=== PATIENT | male | born 1980 | race Caucasian/White ===

== ENCOUNTER 2018-11-07 12:28 | Emergency (ER) | payer SELFPAY ==
[2018-11-07 13:24] LABS: Absolute Lymphocytes (CBC) 1.7 K/uL (0.7-4.9); Absolute Monocytes 0.7 K/uL (0.1-1.3); Absolute Neutrophil 5.5 K/uL (1.8-8.0); Basophils % 0.5 % (0-1.3); Eosinophils % 0.7 % (0-4.4); Hematocrit 50.4 % (39.6-49.0); Lymphocytes % 21.1 % (15.3-44.8); MPV 7.4 fL (7.6-11.3); Monocytes % 8.7 % (3.3-12.3); RBC Red Blood Cell Count 5.49 M/uL (4.33-5.43)
[2018-11-07] MEDS ORDERED: NA CHLORIDE 0.9% 1,000 ML ONE (13:26)
[2018-11-07 13:48] LABS: BUN Blood Urea Nitrogen 6 mg/dL (7-18); Bicarbonate 28 mmol/L (21-32); Glucose Level 101 mg/dL (74-106); Potassium 4.5 mmol/L (3.5-5.1); Sodium Level 139 mmol/L (136-145)
--- NOTE | 2018-11-07 13:48 | RAD REPORT ---
EXAM DESCRIPTION: CT - Head Brain Wo Cont - 11/07/2018 1:42 pm CLINICAL HISTORY: HEADACHE Drowsiness COMPARISON: No comparisons TECHNIQUE: All CT scans are performed using dose optimization technique as appropriate and may inclu de automated exposure control or mA/KV adjustment according to patient size. FINDINGS: No intracranial hemorrhage, hydrocephalus or extra-axial fluid collection.No areas of brai n edema or evidence of midline shift. The paranasal sinuses and mastoids are clear. The calvarium is intact. IMPRESSION: No acute intracranial abnormality.
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
[2018-11-07] MEDS ORDERED: KETOROLAC 30 MG/ML INJ ONE (14:32)
== END 2018-11-07 14:50 | disposition home or self-care (01) ==
LOC: ER 12:28
DX: S32.018A Other fracture of first lumbar vertebra, initial encounter for closed fracture (principal); S32.028A Other fracture of second lumbar vertebra, initial encounter for closed fracture; V59.9XXA Occupant (driver) (passenger) of pick-up truck or van injured in unspecified traffic accident, initial encounter; F17.210 Nicotine dependence, cigarettes, uncomplicated
CPT/HCPCS: 36415; 70450; 71046; 74177; 80048; 85025; 96361; 96374; 99285; J7030; Q9967

== ENCOUNTER 2019-01-05 09:37 | Emergency (ER) | payer SELFPAY ==
[2019-01-05] MEDS ORDERED: FLUORESCEIN SODIUM 1 MG/WRAP ONE (10:25)
[2019-01-05] MEDS ORDERED: TETRACAINE HCL 0.5% 2ML OPTH ONE (10:25)
--- NOTE | 2019-01-05 10:50 | ER ---
Nurse's Notes [facility] Name: Henrik Clemons Age: 38 yrs Sex: Male : 1980 Arrival Date: 01/05/2019 Time: 09:39 Bed 10 Private MD: Diagnosis: Foreign body right upper eyelid;Abrasion of conjunctiva, right eye Presentation: 01/05 09:52 Presenting complaint: Patient states: "I got a piece of aluminum in my right eye aa5 yesterday working". Transition of care: patient was not received from another setting of care. Onset of symptoms was December 2018. Risk Assessment: Do you want to hurt yourself or someone else? Patient reports no desire to harm self or others. Initial Sepsis Screen: Does the patient meet any 2 criteria? No. Patient's initial sepsis screen is negative. Does the patient have a suspected source of infection? No. Patient's initial sepsis screen is negative. Care prior to arrival: None. 09:52 Method Of Arrival: Ambulatory aa5 09:52 Acuity: FILOMENA 4 aa5 Historical: - Allergies: 09:54 No Known Allergies; aa5 - PMHx: 09:54 None; aa5 - PSHx: 09:54 None; aa5 - Immunization history:: Last tetanus immunization: unknown. - Social history:: Smoking status: Patient uses tobacco products, smokes one pack cigarettes per day. - Ebola Screening: : No symptoms or risks identified at this time. Screenin:52 Abuse screen: Denies threats or abuse. Nutritional screening: No deficits noted. aa5 Tuberculosis screening: No symptoms or risk factors identified. Fall Risk None identified. Assessment: 09:52 General: Appears uncomfortable, Behavior is calm, cooperative. Pain: Complains of pain aa5 in right eye Quality of pain is described as irritation. Neuro: Level of Consciousness is awake, alert, obeys commands, Oriented to person, place, time, situation. Cardiovascular: No deficits noted. Respiratory: Airway is patent Respiratory effort is even, unlabored, Respiratory pattern is regular, symmetrical. GI: No signs and/or symptoms were reported involving the gastrointestinal system. : No signs and/or symptoms were reported regarding the genitourinary system. EENT: Eyes are tearing on right eye Sclera/Cornea are reddened in right eye. Derm: Skin is pink, warm \\T\\ dry. Musculoskeletal: Range of motion: intact in all extremities. 11:28 Reassessment: Patient is alert, oriented x 3, equal unlabored respirations, skin aa5 warm/dry/pink. Vital Signs: 09:54 BP 131 / 94; Pulse 75; Resp 16 S; Temp 98.3(TE); Pulse Ox 98% on R/A; Weight 72.57 kg aa5 (R); Height 5 ft. 9 in. (175.26 cm) (R); Pain 4/10; 09:54 Body Mass Index 23.63 (72.57 kg, 175.26 cm) aa5 Visual Acuity: 11:19 Left Eye Visual acuity 20/40, ; Right Eye Visual acuity 20/20, ; Both Eyes Visual hj acuity 20/20; Without Lenses; ED Course: 09:39 Patient arrived in ED. rg4 09:52 Arm band placed on. aa5 09:52 Patient has correct armband on for positive identification. Bed in low position. Call aa5 light in reach. Side rails up X 1. 09:53 Triage completed. aa5 09:55 Ivory Antonio, CARLINE is Primary Nurse. aa5 10:05 Arpan Brar NP is PHCP. pm1 10:05 Louis Elena MD is Attending Physician. pm1 10:41 Assist provider with eye exam of right eye. using fluorescein stain, Performed by aa5 Arpan Brar NP Patient tolerated Other small piece of aluminum removed by SUREKHA. 11:28 Patient did not have IV access during this emergency room visit. aa5 Administered Medications: 10:40 Drug: Tetracaine Drops 0.5 % 1 drops Route: Ophthalmic; Site: right eye; dm5 10:41 Drug: Fluorescein Strip 1 strip Route: Ophthalmic; Site: right eye; dm5 10:51 Drug: Tetanus-Diphtheria Toxoid Adult 0.5 ml {[employer]: [place]. Exp: dm5 07/11/2020. Lot #: [id number]. } Route: IM; Site: right deltoid; 11:20 Follow up: Response: No adverse reaction aa5 Outcome: 10:50 Discharge ordered by . pm1 11:28 Discharged to home ambulatory. aa5 11:28 Condition: good 11:28 Discharge instructions given to patient, Instructed on discharge instructions, follow up and referral plans. medication usage, Demonstrated understanding of instructions, follow-up care, medications, Prescriptions given X 1. 11:30 Patient left the ED. dm5 Signatures: Linda Keating RN RN dm5 Ivory Antonio RN RN aa5 Ilya Womack, RN RN Arpan Correa, FACSIMILE OPERATOR FACSIMILE OPERATOR pm1 Lissy Trevino rg4 Corrections: (The following items were deleted from the chart) 09:40 General: Appears uncomfortable, Behavior is calm, cooperative, aa5 aa5 09:40 Pain: Complains of pain in right eye Quality of pain is described as irritation aa5 aa5 09:40 Neuro: Level of Consciousness is awake, alert, obeys commands, Oriented to aa5 person, place, time, situation, aa5 09:40 Cardiovascular: No deficits noted. aa5 aa5 09:40 Respiratory: Airway is patent Respiratory effort is even, unlabored, Respiratory aa5 pattern is regular, symmetrical, aa5 09:40 GI: No signs and/or symptoms were reported involving the gastrointestinal system. aa5 aa5 09:40 : No signs and/or symptoms were reported regarding the genitourinary system. aa5aa5 09:40 EENT: Eyes are tearing on right eye Sclera/Cornea are reddened in right eye aa5 aa5 09:40 Derm: Skin is pink, warm \\T\\ dry. aa5 aa5 09:40 Musculoskeletal: Range of motion: intact in all extremities, aa5 aa5 10:47 10:47 No provider procedures requiring assistance completed. aa5 aa5
--- NOTE | 2019-01-05 10:50 | EDPHYS ---
Physician Documentation [facility] Name: Henrik Clemons Age: 38 yrs Sex: Male : 1980 Arrival Date: 01/05/2019 Time: 09:39 Bed 10 Private MD: ED Physician Louis Elena HPI: 01/05 10:20 This 38 yrs old Male presents to ER via Ambulatory with complaints of Foreign pm1 Body In Eye. 10:20 The patient is experiencing foreign body sensation, to the right eye, caused by metal pm1 fragment. Onset: The symptoms/episode began/occurred yesterday. Duration: the symptoms are continuous. Aggravated by nothing. Alleviated by nothing. Associated signs and symptoms: Pertinent positives: None. Pertinent negatives: vision changes. 10:20 Patient does not utilize any form of vision correction. Severity of symptoms: in the pm1 emergency department the symptoms are unchanged. The patient has not experienced similar symptoms in the past. The patient has not recently seen a physician. Patient was wearing eye dick but a piece of aluminum that he was cutting for the gutters got into his right eye. Historical: - Allergies: 09:54 No Known Allergies; aa5 - PMHx: 09:54 None; aa5 - PSHx: 09:54 None; aa5 - Immunization history:: Last tetanus immunization: unknown. - Social history:: Smoking status: Patient uses tobacco products, smokes one pack cigarettes per day. - Ebola Screening: : No symptoms or risks identified at this time. ROS: 10:20 Constitutional: Negative for fever, chills, and weight loss, ENT: Negative for injury, pm1 pain, and discharge. 10:20 Neck: Negative for injury, pain, and swelling, Cardiovascular: Negative for chest pain, palpitations, and edema, Respiratory: Negative for shortness of breath, cough, wheezing, and pleuritic chest pain, Abdomen/GI: Negative for abdominal pain, nausea, vomiting, diarrhea, and constipation, Back: Negative for injury and pain, : Negative for injury, bleeding, discharge, and swelling, MS/Extremity: Negative for injury and deformity, Skin: Negative for injury, rash, and discoloration, Neuro: Negative for headache, weakness, numbness, tingling, and seizure. 10:20 Eyes: Positive for foreign body sensation, pain, of the right eye. Exam: 10:42 Constitutional: This is a well developed, well nourished patient who is awake, alert, pm1 and in no acute distress. Head/Face: Normocephalic, atraumatic. 10:42 ENT: Nares patent. No nasal discharge, no septal abnormalities noted. Tympanic membranes are normal and external auditory canals are clear. Oropharynx with no redness, swelling, or masses, exudates, or evidence of obstruction, uvula midline. Mucous membranes moist. Neck: Trachea midline, no thyromegaly or masses palpated, and no cervical lymphadenopathy. Supple, full range of motion without nuchal rigidity, or vertebral point tenderness. No Meningismus. Chest/axilla: Normal chest wall appearance and motion. Nontender with no deformity. No lesions are appreciated. Cardiovascular: Regular rate and rhythm with a normal S1 and S2. No gallops, murmurs, or rubs. Normal PMI, no JVD. No pulse deficits. Respiratory: Lungs have equal breath sounds bilaterally, clear to auscultation and percussion. No rales, rhonchi or wheezes noted. No increased work of breathing, no retractions or nasal flaring. Abdomen/GI: Soft, non-tender, with normal bowel sounds. No distension or tympany. No guarding or rebound. No evidence of tenderness throughout. Back: No spinal tenderness. No costovertebral tenderness. Full range of motion. Skin: Warm, dry with normal turgor. Normal color with no rashes, no lesions, and no evidence of cellulitis. MS/ Extremity: Pulses equal, no cyanosis. Neurovascular intact. Full, normal range of motion. 10:42 Eyes: Periorbital structures: appear normal, Pupils: no acute changes, normal size, normal reaction to light, Extraocular movements: intact throughout, Conjunctiva: injected, in the right eye, Corneas: abrasion, is not appreciated, Sclera: abrasion, of the lateral aspect of conjunctiva of right eye Lids and lashes: small morelos color speck foreign body on inner right upper eye lid when eyelid flipped. 10:42 Neuro: Orientation: is normal, Motor: is normal, Sensation: is normal, no obvious gross deficits. Vital Signs: 09:54 BP 131 / 94; Pulse 75; Resp 16 S; Temp 98.3(TE); Pulse Ox 98% on R/A; Weight 72.57 kg aa5 (R); Height 5 ft. 9 in. (175.26 cm) (R); Pain 4/10; 09:54 Body Mass Index 23.63 (72.57 kg, 175.26 cm) aa5 Visual Acuity: 11:19 Left Eye Visual acuity 20/40, ; Right Eye Visual acuity 20/20, ; Both Eyes Visual hj acuity 20/20; Without Lenses; Procedures: 10:42 Foreign Body Removal: a piece of metal, speck, from the right inside of right upper pm1 eyelid, by using a cotton-tipped swab, The patient tolerated the removal well, tetracaine drop applied to right eye. MDM: 10:13 Patient medically screened. pm1 10:43 Data reviewed: vital signs. Data interpreted: Pulse oximetry: on room air is 98 %. pm1 Interpretation: normal. 10:43 Counseling: I had a detailed discussion with the patient and/or guardian regarding: the pm1 historical points, exam findings, and any diagnostic results supporting the discharge/admit diagnosis, the need for outpatient follow up, for definitive care, an opthalmologist, to return to the emergency department if symptoms worsen or persist or if there are any questions or concerns that arise at home. 01/05 10:13 Order name: Visual Acuity; Complete Time: 11:29 pm1 01/05 10:13 Order name: Eye Tray; Complete Time: 10:23 pm1 01/05 10:13 Order name: Fluoresene Opth strip; Complete Time: 10:18 pm1 Administered Medications: 10:40 Drug: Tetracaine Drops 0.5 % 1 drops Route: Ophthalmic; Site: right eye; dm5 10:41 Drug: Fluorescein Strip 1 strip Route: Ophthalmic; Site: right eye; dm5 10:51 Drug: Tetanus-Diphtheria Toxoid Adult 0.5 ml {Manager System: ReInnervate. Exp: dm5 07/11/2020. Lot #: [id number]. } Route: IM; Site: right deltoid; 11:20 Follow up: Response: No adverse reaction aa5 Disposition: 14:26 Co-signature as Attending Physician, Louis Elena MD. rn Disposition: 01/05/19 10:50 Discharged to Home. Impression: Foreign body right upper eyelid, Abrasion of conjunctiva, right eye. - Condition is Stable. - Discharge Instructions: Corneal Abrasion, Eye Foreign Body. - Prescriptions for Gentamicin 0.3 % Ophthalmic Drops - instill 1 drop by OPHTHALMIC route every 4 hours for 7 days; 1 bottle. - Medication Reconciliation Form, Thank You Letter, Antibiotic Education form. - Follow up: Emergency Department; When: As needed; Reason: Worsening of condition. Follow up: Private Physician; When: 2 - 3 days; Reason: Recheck today's complaints, Continuance of care, Re-evaluation by your physician. - Problem is new. - Symptoms have improved. Signatures: Linda Keating, RN RN dm5 Louis Elena MD MD rn Calderon, Ivory, RN RN aa5 Arpan Brar, RIVER EXPEDITION GUIDE RIVER EXPEDITION GUIDE pm1 Corrections: (The following items were deleted from the chart) 11:30 10:50 01/05/2019 10:50 Discharged to Home. Impression: Foreign body right upper eyelid; dm5 Abrasion of conjunctiva, right eye. Condition is Stable. Forms are Medication Reconciliation Form, Thank You Letter, Antibiotic Education, Prescription Opioid Use. Follow up: Emergency Department; When: As needed; Reason: Worsening of condition. Follow up: Private Physician; When: 2 - 3 days; Reason: Recheck today's complaints, Continuance of care, Re-evaluation by your physician. Problem is new. Symptoms have improved. pm1
[2019-01-05] MEDS ORDERED: TETANUS & DIPHTHERIA TOX,ADULT 0.5 ML VIAL ONE (10:55)
== END 2019-01-05 11:30 | disposition home or self-care (01) ==
LOC: ER 09:37
DX: T15.91XA Foreign body on external eye, part unspecified, right eye, initial encounter (principal); T15.11XA Foreign body in conjunctival sac, right eye, initial encounter; W45.8XXA Other foreign body or object entering through skin, initial encounter; Y93.89 Activity, other specified; F17.210 Nicotine dependence, cigarettes, uncomplicated
CPT/HCPCS: 90714; 99283

== ENCOUNTER 2021-09-02 16:42 | Observation (INO) | payer OTHER, SELFPAY ==
[2021-09-02] MEDS ORDERED: LIDOCAINE 1% MPF 30 ML VIAL ONE (17:31)
[2021-09-02] MEDS ORDERED: ACETAMINOPHEN 500 MG TAB ONE (17:31)
[2021-09-02] MEDS ORDERED: FENTANYL CITR 100 MCG/2 ML ONE ×2 (18:00→18:49)
[2021-09-02] MEDS ORDERED: NA CHLORIDE 0.9% 1,000 ML ONE ×2 (18:00→20:10)
[2021-09-02 18:45] LABS: Absolute Lymphocytes (CBC) 2.2 K/uL (0.7-4.9); Basophils % 0.8 % (0-1.3); Hematocrit 46.6 % (39.6-49.0); Lymphocytes % 24.7 % (15.3-44.8); MPV 6.9 fL (7.6-11.3); RBC Red Blood Cell Count 4.95 M/uL (4.33-5.43)
[2021-09-02] MEDS ORDERED: TETANUS & DIPHTHERIA TOX,ADULT 0.5 ML VIAL ONE (18:49)
[2021-09-02 18:50] LABS: Protime INR 0.91
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
[2021-09-02 18:58] LABS: BUN Blood Urea Nitrogen 7 mg/dL (7-18); Bicarbonate 24 mmol/L (21-32); Glucose Level 83 mg/dL (74-106); Potassium 3.9 mmol/L (3.5-5.1); Sodium Level 133 mmol/L (136-145)
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
[2021-09-02] MEDS ORDERED: MORPHINE 4 MG/ML SYR ONE ×2 (20:10→22:44)
[2021-09-02] MEDS ORDERED: ONDANSETRON 4 MG/2 ML VIAL IV PRN (20:41)
[2021-09-02] MEDS ORDERED: ACETAMINOPHEN 500 MG TAB PO PRN (20:41)
[2021-09-02 22:13] LABS: Hematocrit 46.1 % (39.6-49.0)
[2021-09-03 00:44] VITALS: BMI 22.8
[2021-09-03] MEDS ORDERED: D5 0.45 NS 1,000 ML IV ONE ×2 (01:22→05:28)
[2021-09-03] MEDS: D5 0.45 NS 1,000 ML IV SCH ×4 (01:32→20:24)
[2021-09-03 04:29] LABS: Absolute Lymphocytes (CBC) 1.6 K/uL (0.7-4.9); Basophils % 0.9 % (0-1.3); Hematocrit 46.3 % (39.6-49.0); Lymphocytes % 19.6 % (15.3-44.8); MPV 7.1 fL (7.6-11.3); RBC Red Blood Cell Count 4.86 M/uL (4.33-5.43)
[2021-09-03 04:55] LABS: ALT/SGPT 69 U/L (12-78); AST/SGOT 54 U/L (15-37); Albumin 3.2 g/dL (3.4-5.0); Alkaline Phosphatase 78 U/L (45-117); BUN Blood Urea Nitrogen 7 mg/dL (7-18); Bicarbonate 26 mmol/L (21-32); Bilirubin Direct 0.3 mg/dL (0-0.2); Bilirubin Total 1.3 mg/dL (0.2-1.0); Glucose Level 89 mg/dL (74-106); Lipase 71 U/L (73-393); Potassium 3.9 mmol/L (3.5-5.1); Sodium Level 140 mmol/L (136-145)
[2021-09-03] MEDS ORDERED: ONDANSETRON 4 MG/2 ML VIAL ONE (07:49)
[2021-09-03] MEDS ORDERED: MORPHINE 4 MG/ML SYR ONE ×2 (07:49→12:13)
[2021-09-03] MEDS: MORPHINE 4 MG/ML SYR IV PRN ×4 (07:58→20:16)
[2021-09-03] MEDS ORDERED: INFLUENZA VACCINE (for 6+ mo) 0.5 ML DOSE IMVAC ONE (08:00)
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
[2021-09-03 11:38] VITALS: O2SAT 93
[2021-09-03] MEDS ORDERED: TRIAMCINOLONE ACET 0.1% CREAM 80 GM TOP PRN (13:00)
[2021-09-03] MEDS ORDERED: TRIAMCINOLONE 0.1% TOP PRN (13:08)
[2021-09-03] MEDS ORDERED: DENTAL PASTE TOP PRN (13:08)
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
[2021-09-04] MEDS: MORPHINE 4 MG/ML SYR IV PRN ×3 (00:11→08:40)
[2021-09-04] MEDS: D5 0.45 NS 1,000 ML IV SCH (04:16)
--- NOTE | 2021-09-04 11:46 | P.DS ---
Admission Date: 09/02/21 Discharge Date: 09/04/21 Disposition: ROUTINE DISCHARGE Discharge Condition: GOOD - Problems (1) Abdominal wall hematoma Onset Date: ~09/02/21 Current Visit: Yes Status: Acute (2) Lip laceration Onset Date: ~09/02/21 Current Visit: Yes Status: Acute Vital Signs/Physical Exam: Temp Pulse Resp BP Pulse Ox 98.1 F 72 19 140/86 97 09/04/21 08:00 09/04/21 08:00 09/04/21 09:10 09/04/21 08:00 09/04/21 09:10 General: Alert, In no apparent distress, Oriented x3, Cooperative HEENT: PERRLA, EOMI Neck: Supple, Without JVD or thyroid abnormality Respiratory: Clear to auscultation bilaterally, Normal air movement Cardiovascular: Normal pulses Gastrointestinal: Soft and benign, No rebound, No guarding Musculoskeletal: No clubbing, No contractures, No erythema, No warmth, Other (LEft flank hematoma stable) Integumentary: No rashes, No breakdown Neurological: Normal speech, Cranial nerves 3-12 intact Lymphatics: No axilla or inguinal lymphadenopathy Laboratory Data at Discharge: WBC 8.10 K/uL (4.3-10.9) 09/03/21 04:11 Hgb Cancelled 09/03/21 13:00 Hct Cancelled 09/03/21 13:00 Plt Count 251 K/uL (152-406) 09/03/21 04:11 PT 10.4 SECONDS (9.5-12.5) 09/02/21 18:18 INR 0.91 09/02/21 18:18 APTT 31.2 SECONDS (24.3-36.9) 09/02/21 18:18 Sodium 140 mmol/L (136-145) 09/03/21 04:11 Potassium 3.9 mmol/L (3.5-5.1) 09/03/21 04:11 BUN 7 mg/dL (7-18) 09/03/21 04:11 Creatinine 0.79 mg/dL (0.55-1.3) 09/03/21 04:11 Glucose 89 mg/dL (74-106) 09/03/21 04:11 Total Bilirubin 1.3 mg/dL (0.2-1.0) H 09/03/21 04:11 AST 54 U/L (15-37) H 09/03/21 04:11 ALT 69 U/L (12-78) 09/03/21 04:11 Alkaline Phosphatase 78 U/L (45-117) 09/03/21 04:11 Lipase 71 U/L (73-393) L 09/03/21 04:11 Imagings Data: reviewed with the patient Home Medications: Amoxicillin/Potassium Clav [Augmentin 875-125 Tablet] 1 each PO Q12H #10 tablet 09/04/21 Codeine/APAP [Tylenol W/Codeine #3 tab] 1 tab PO Q4HP PRN #30 tab 09/04/21 Triamcin 0.1% [Kenalog 0.1% Orabase*] 1 appl TOP BIDP PRN tube 09/04/21 New Medications: Amoxicillin/Potassium Clav [Augmentin 875-125 Tablet] 1 each PO Q12H #10 tablet Codeine/APAP [Tylenol W/Codeine #3 tab] 1 tab PO Q4HP PRN #30 tab PRN Reason: Pain Physician Discharge Instructions: 1. F/u with his dentist 2. abdominal binder while out of bed Diet: Regular Activity: No lifting more than 10 lbs Followup: NONE,NONE [Primary Care Provider] - Ilya Ontiveros MD [ACTIVE - CAN ADMIT] - 1 Week
[2021-09-04 12:25] VITALS: BP 154/98; TEMP 98.2
== END 2021-09-04 12:54 | disposition home or self-care (01) ==
LOC: ER 16:42 → ERHOLD 21:30 → 2ND 09-03 12:57
PROVIDERS: ADMIT Surgery; ATTEND Surgery
PROC: 0CQ13ZZ Repair Lower Lip, Percutaneous Approach (ICD-10-PCS; principal; 2021-09-02)
PROC: 0CQ03ZZ Repair Upper Lip, Percutaneous Approach (ICD-10-PCS; 2021-09-02)
DX: S01.511A Laceration without foreign body of lip, initial encounter (principal); S30.1XXA Contusion of abdominal wall, initial encounter; S70.11XA Contusion of right thigh, initial encounter; V47.0XXA Car driver injured in collision with fixed or stationary object in nontraffic accident, initial encounter; Y92.410 Unspecified street and highway as the place of occurrence of the external cause; Z23 Encounter for immunization
CPT/HCPCS: 36415; 70450; 70486; 71260; 72125; 74177; 76377; 80048; 80076; 82565; 83690; 85014; 85018; 85025; 85610; 85730; 86850; 86900; 86901; 90471; 90714; 96361; 96374; 96375; 99284; G0378; J2405; J3010; J7030; J7799; Q9967; U0003